=== PATIENT | female | born 1970 | race Caucasian/White ===

== ENCOUNTER 2022-10-22 13:44 | Observation (INO) ==
--- NOTE | 2022-10-22 14:37 | DR.CP ---
HPI Time Seen Time Seen by Provider: 10/22/22 14:35 PCP Primary Care Physician: Emeka HPI Comment HPI Comment: PATIENT IS 52YR OLD FEMALE IN ER WITH HEADACHE, LEFT HAND PAIN AND LIGHT HEADEDNESS AND DIZZINESS TIMES 3 WEEKS. CP AND SOB TIMES I MONTH. SYMPTOMS GETTING WORSE. DENIES FEVER, DYSURIA OR VOMITING.DENIES TRAUMA. SHE IS NAUSEATED. HISTORY DM. Complaint Chief Complaint Doctor Comments: HEADACHE, DIZZINESS TIMES 3 WEEKS AND CP AND SOB TIMES ONE MONTH. Chief Complaint:: pt comes to the ED with c/o KAUR and left hand pain. Reports lightheadedness and dizziness that started 3 weeks ago and got worse today. Pt reports CP and SOB that started x 1 month ago. Pt denies any vomiting but reports feeling nauseated. Denies any falls. COVID-19 Coronavirus risk:travel/contact w/high risk person: No Has patient experienced Coronavirus symptoms: No Reviewed Nurses Notes Review: Yes Source History Provided: Patient Mode of Arrival Mode of Arrival: Ambulatory Timing Onset of Chief Complaint: 10/08/22 PMH PMH Past Medical History: Yes Past Medical History: Diabetes Past Medical History Comment: lupus Past Surgical History: Yes Surgical History: Hysterectomy Past Surgical History Comment: hernia Family History History of Family Medical Conditions: No Family Medical History: Cancer Social History Alcohol Use: None Do you use any recreational Drugs:: No Lives With: Alone Lives Where: Home Infectious screening In the last 2 months have you had wt loss of >10#?: NO Have you had fever, night sweats or hemotysis?: No Have you traveled outside the country in the last 6 months?: No Isolation: Standard ROS Review of Systems Constitutional: No Symptoms Reported Eyes: No Symptoms Reported ENTM: No Symptoms Reported and Nose Congestion; negative Nose Discharge Respiratoy: Short of Breath; negative Moist Cough or Wheezing Cardiovascular: Chest Pain; negative Edema or Palpitations Gastrointestinal/Abdominal: Nausea; negative Abdominal Pain, Diarrhea or Vomiting Genitourinary: No Symptoms Reported; negative Dysuria Neurological: Headache and Dizziness Musculoskeletal: No Symptoms Reported Integumentary: No Symptoms Reported; negative Rash or Juandice Hematologic/Lymphatic: No Symptoms Reported; negative Easy Bruising Endocrine: No Symptoms Reported; negative Increased Thirst or Increased Urine Psychiatric: No Symptoms Reported All Other Systems: Reviewed and Negative PE Vitals Vitals: Temperature 98.2 F Pulse Rate [Standing] 91 Pulse Rate [Sitting] 90 Pulse Rate [Lying] 78 Pulse Rate 86 Respiratory Rate 18 Blood Pressure [Standing] 96/51 Blood Pressure [Sitting] 128/74 Blood Pressure [Lying] 135/70 Blood Pressure 79/51 O2 Sat by Pulse Oximetry 99 General Limitations: No Limitations General Appearance: Alert Head Head Exam: Normal Inspection and Atraumatic Eyes Eye exam: Normal Appearance, PERRL and Conjunctival Injection; negative Scleral Icterus ENT ENT Exam: Normal Exam, Normal Oropharynx, Normal External Ear Exam and TM's Normal Bilaterally Chest Chest Inspection: Normal Inspection and Symmetric Chest Wall Rise; negative Tenderness Respiratory Respiratory Exam: Normal Lung Sounds Bilat; negative Accessory Muscle Use, Chest Wall Tenderness or Respiratory Distress Respiratory Exam: Bilateral: Rhonchi Cardiovascular Cardiovascular Exam: Regular Rate, Normal Rhythm and Normal Heart Sounds; negative Systolic Murmur or Diastolic Murmur Pulse: Normal Abdominal Exam Abdominal Exam: Normal Inspection, Normal Bowel Sounds and Soft; negative Tenderness Extremities Extremities Exam: Normal Inspection and Normal Capillary Refill Back Back Exam: Normal Inspection; negative (R) CVA Tenderness or (L) CVA Tenderness Neurologic Neurological Exam: Alert and Oriented X3; negative Motor Sensory Deficit Psychiatric Psychiatric Exam: Normal Affect and Normal Mood Skin Skin Exam: Intact MDM Differential Diagnosis Differential Diagnosis: Angina, CHF, Myocardial Infarction, Pericarditis, Pneumonia and Pneumothorax COURSE Treatment Treatment: SEE ORDERS DONE WHILE PATIENT WAS IN ER. LABS, EKG AND LAB REPORTS DISCUSSED WITH PATIENT. SHE WILL BE ADMITTED TO [facility] FOR FURTHER CARE. Consultation Consultation Comments: DISCUSSED PATIENT WITH DR GIBSON. HE WILL ADMIT PATIENT. Education/Counseling Education/Counseling: Patient Educated On: Diagnosis ROR Labs Reviewed Laboratory Results Reviewed?: Yes Result Diagrams: 10/24/22 05:47 10/24/22 05:47 Laboratory: WBC 8.7 X10^3/uL (3.6-10.0) 10/22/22 15:02 RBC 4.71 X10^6/uL (3.5-5.4) 10/22/22 15:02 Hgb 12.9 g/dL (12.0-16.0) 10/22/22 15:02 Hct 37.4 % (36.0-47.0) 10/22/22 15:02 MCV 79.4 fL (80.0-100.0) L 10/22/22 15:02 MCH 27.5 pg (27.0-34.0) 10/22/22 15:02 MCHC 34.6 g/dL (33.0-35.0) 10/22/22 15:02 RDW 12.2 % (11.6-16.5) 10/22/22 15:02 Plt Count 241 X10^3/uL (150.0-450.0) 10/22/22 15:02 MPV 8.1 fL (7.4-11.0) 10/22/22 15:02 Neut % (Auto) 65.0 % (42.0-75.0) 10/22/22 15:02 Lymph % (Auto) 22.1 % (21.0-51.0) 10/22/22 15:02 [place] % (Auto) 6.5 % (0.0-13.0) 10/22/22 15:02 Eos % (Auto) 5.0 % (0.9-2.9) H 10/22/22 15:02 Baso % (Auto) 1.4 % (0.2-1.0) H 10/22/22 15:02 Neut # (Auto) 5.6 x10^3/uL (2.2-4.8) H 10/22/22 15:02 Lymph # (Auto) 1.9 X10^3/uL (1.3-2.9) 10/22/22 15:02 [place] # (Auto) 0.6 x10^3/uL (0.3-0.8) 10/22/22 15:02 Eos # (Auto) 0.4 x10^3/uL (0.0-0.2) H 10/22/22 15:02 Baso # (Auto) 0.1 X10^3/uL (0.0-0.1) 10/22/22 15:02 Absolute Nucleated RBC 0.1 /100WBC 10/22/22 15:02 Sodium 131 mmol/L (136-145) L 10/22/22 15:02 Corrected Sodium 138 mmol/L (136-145) 10/22/22 15:02 Potassium 4.4 mmol/L (3.5-5.1) 10/22/22 15:02 Chloride 97 mmol/L (98-107) L 10/22/22 15:02 Carbon Dioxide 29.5 mmol/L (21-32) 10/22/22 15:02 BUN 16 mg/dL (7-18) 10/22/22 15:02 Creatinine 1.24 mg/dL (0.55-1.02) H 10/22/22 15:02 Est GFR (MDRD) Af Amer 59 (>60) 10/22/22 15:02 Est GFR (MDRD) Non-Af 48 (>60) L 10/22/22 15:02 Glucose 397 mg/dL (65-99) H 10/22/22 15:02 POC Glucose (mg/dL) 396 mg/dL (65-99) H 10/22/22 14:24 Calcium 8.9 mg/dL (8.5-10.1) 10/22/22 15:02 Corrected Calcium TNP 10/22/22 15:02 Total Bilirubin 0.40 mg/dL (0.2-1.0) 10/22/22 15:02 AST 20 Units/L (15-37) 10/22/22 15:02 ALT 27 Units/L (12-78) 10/22/22 15:02 Alkaline Phosphatase 105 Units/L (46-116) 10/22/22 15:02 Creatine Kinase 70 Units/L (26-192) 10/22/22 15:02 Troponin I High Sens < 4.0 ng/L (4.0-60.0) L 10/22/22 15:02 Total Protein 7.1 g/dL (6.4-8.2) 10/22/22 15:02 Albumin 3.5 g/dL (3.4-5.0) 10/22/22 15:02 Globulin 3.6 g/dL (2.5-4.5) 10/22/22 15:02 Albumin/Globulin Ratio 1.0 Ratio (1.1-2.1) L 10/22/22 15:02 Specimen Type Clean catch urine 10/22/22 16:09 Urine Color Pale yellow (YELLOW) 10/22/22 16:09 Urine Appearance Clear (CLEAR) 10/22/22 16:09 Urine pH 6.0 (5.0 - 8.0) 10/22/22 16:09 Ur Specific [place] 1.020 (1.000-1.030) 10/22/22 16:09 Urine Protein 2+ (NEGATIVE) 10/22/22 16:09 Urine Glucose (UA) 4+ (NEGATIVE) 10/22/22 16:09 Urine Ketones Negative (NEGATIVE) 10/22/22 16:09 Urine Blood Negative (NEGATIVE) 10/22/22 16:09 Urine Nitrite Negative (NEGATIVE) 10/22/22 16:09 Urine Bilirubin Negative (NEGATIVE) 10/22/22 16:09 Urine Urobilinogen Normal (NORMAL) 10/22/22 16:09 Ur Leukocyte Esterase Negative (NEGATIVE) 10/22/22 16:09 Urine RBC None seen /HPF (0-3) 10/22/22 16:09 Urine WBC None seen /HPF (0-5) 10/22/22 16:09 Ur Squamous Epith Cells Rare /HPF (NEGATIVE) 10/22/22 16:09 Amorphous Sediment Trace /HPF (NEGATIVE) 10/22/22 16:09 Urine Bacteria 1+ /HPF (NEGATIVE) 10/22/22 16:09 Hyaline Casts Few /LPF (NEGATIVE) 10/22/22 16:09 Ur Culture Indicated? No/not indicated 10/22/22 16:09 XRAY XRAY Interpreted by: Radiologist (REPORTS NOTED.) and Self EKG Rate: 84 [place]: Normal Rhythm: NSR Block: None Hypertrophy: None ST: Infarct (septal infarct, age undertermined.) Opioid Opioid Risk Tool Total: 0 Total Score Risk Category: Low Risk Copyright: Romero WILKINSON predicting aberrant behaviors Discharge Plan Diagnosis Discharge Problem: Acute hypotension, Weakness generalized, Acute dehydration Headache Qualifiers: Headache type: unspecified Headache chronicity pattern: acute headache Intractability: intractable Qualified Code(s): R51.9 - Headache, unspecified Discharge Plan Patient Disposition: 09 ADMITTED INPATIENT Condition: Stable Orders to Discharge Patient Discharge Orders: Discharge (Routine); Ordered 10/24/22 Ordered By: JAY SOTELO
[2022-10-22] MEDS ORDERED: NS 1,000 ML IV 1,000 ML IV ONE (14:43)
[2022-10-22] MEDS ORDERED: NS 1,000 ML IV 1,000 ML ONE (14:52)
[2022-10-22 15:09] LABS: BASOPHILS # (AUTO) 0.1 X10^3/uL (0.0-0.1); BASOPHILS % (AUTO) 1.4 % (0.2-1.0); EOSINOPHILS # (AUTO) 0.4 x10^3/uL (0.0-0.2); HEMATOCRIT 37.4 % (36.0-47.0); HEMOGLOBIN 12.9 g/dL (12.0-16.0); LYMPHOCYTES # (AUTO) 1.9 X10^3/uL (1.3-2.9); LYMPHOCYTES % (AUTO) 22.1 % (21.0-51.0); MEAN CORPUSCULAR HEMOGLOBIN 27.5 pg (27.0-34.0); MEAN CORPUSCULAR HGB CONC 34.6 g/dL (33.0-35.0); MEAN CORPUSCULAR VOLUME 79.4 fL (80.0-100.0); MEAN PLATELET VOLUME 8.1 fL (7.4-11.0); MONOCYTES # (AUTO) 0.6 x10^3/uL (0.3-0.8); MONOCYTES % (AUTO) 6.5 % (0.0-13.0); NEUTROPHILS # (AUTO) 5.6 x10^3/uL (2.2-4.8); RED BLOOD COUNT 4.71 X10^6/uL (3.5-5.4); RED CELL DISTRIBUTION WIDTH 12.2 % (11.6-16.5); WHITE BLOOD COUNT 8.7 X10^3/uL (3.6-10.0)
[2022-10-22 15:27] LABS: ALANINE AMINOTRANSFERASE 27 Units/L (12-78); ALBUMIN 3.5 g/dL (3.4-5.0); ALKALINE PHOSPHATASE 105 Units/L (46-116); ASPARTATE AMINO TRANSFERASE 20 Units/L (15-37); BLOOD UREA NITROGEN 16 mg/dL (7-18); CALCIUM 8.9 mg/dL (8.5-10.1); CARBON DIOXIDE 29.5 mmol/L (21-32); CHLORIDE 97 mmol/L (98-107); COR NA(FOR HYPERGLY) 138 mmol/L (136-145); CREATINE KINASE 70 Units/L (26-192); CREATININE 1.24 mg/dL (0.55-1.02); SODIUM 131 mmol/L (136-145); TOTAL PROTEIN 7.1 g/dL (6.4-8.2); eGFR NON BLACK RACES 48 (>60)
--- NOTE | 2022-10-22 15:32 | RAD ---
HISTORYLIGHT HEADED, SOB. DyspneaSTUDYCHEST, 1 VIEWCOMPARISONNone available.FINDINGSThe trachea is midline. The cardiac silhouette is unremarkable.The lungs are clear without focal infiltrate or effusion.The bony thorax is unremarkable.IMPRESSIONNo acute cardiopulmonary findings .Electronically signed by: SABINE DODSON III (Oct 22, 2022 15:30:29)
--- NOTE | 2022-10-22 15:50 | EKG ---
Test Reason : HYPOTENSION Blood Pressure : */* mmHG Vent. Rate : 84 BPM Atrial Rate : 84 BPM P-R Int : 176 ms QRS Dur : 70 ms QT Int : 376 ms P-R-T Axes : 59 -15 53 degrees QTc Int : 444 ms Normal sinus rhythm Septal infarct , age undetermined Abnormal ECG No previous ECGs available Confirmed by Michael Minor ([id number]) on 10/23/2022 7:41:40 AM Referred By: Confirmed By: Michael Minor
[2022-10-22 16:18] LABS: BILIRUBIN,URINE NEGATIVE (NEGATIVE); BLOOD/HEMOGLOBIN,URINE NEGATIVE (NEGATIVE); GLUCOSE, URINE 4+ (NEGATIVE); KETONES,URINE NEGATIVE (NEGATIVE); LEUKOCYTE ESTERASE ,URINE NEGATIVE (NEGATIVE); NITRITES,URINE NEGATIVE (NEGATIVE); PROTEIN,URINE 2+ (NEGATIVE); UROBILINOGEN,URINE NORMAL (NORMAL)
[2022-10-22 16:27] LABS: APPEARANCE,URINE CLEAR (CLEAR); COLOR,URINE PALE YELLOW (YELLOW)
[2022-10-22 16:28] LABS: BACTERIA,URINE 1+ /HPF (NEGATIVE); HYALINE CASTS, URINE FEW /LPF (NEGATIVE); RBC,URINE NONE SEEN /HPF (0-3); SQUAMOUS EPITHELIAL CELL,UR RARE /HPF (NEGATIVE)
--- NOTE | 2022-10-22 17:38 | CT ---
EXAM: HEAD CT WITHOUT INTRAVENOUS CONTRASTHISTORY: Lightheadedness. Dizziness x3 weeks, with worse symptoms today.TECHNIQUE: Spiral axial CT images are obtained through the brain without the administration of intravenous contrast. Sagittal and coronal reformatted images are reconstructed.DOSIMETRY: Total DLP 841.24 mGycm; CTDI 48 mGyCOMPARISON: None available.FINDINGS:There is mild diffuse cerebral cortical atrophy. The centrum semiovale, basal ganglia, cerebellum, and brainstem are otherwise grossly unremarkable for a noncontrast CT scan.There is no acute intracranial hemorrhage, discernible acute infarction, mass lesion, midline shift, or hydrocephalus seen. No extra-axial mass or abnormal fluid collection is seen.The calvarium is intact. The partially imaged paranasal sinuses, middle ear cavities, and mastoid air cells are clear.IMPRESSION:1. No intracranial hemorrhage, discernible acute infarction, mass lesions, midline shift, mass effect or hydrocephalus seen.2. Mild diffuse cerebral cortical atrophy.3. Consider followup evaluation with MRI /MRA imaging for further assessment as clinically warranted.Electronically signed by: Leonel Brooks (Oct 22, 2022 17:37:02)
[2022-10-22] MEDS ORDERED: HumaLOG SC SCH ×2 (18:44→19:00)
[2022-10-22] MEDS: SNACK - Diabetic Appropriate PO SCH (19:45)
[2022-10-22 20:06] VITALS: BMI 26.4
[2022-10-22] MEDS: NS 1,000 ML IV 1,000 ML IV SCH (21:20)
[2022-10-22] MEDS: NovoLIN R (or HumuLIN R) SUBCUT PRN (21:22)
[2022-10-22] MEDS: LANTUS SC SCH (21:22)
--- NOTE | 2022-10-22 23:05 | EKG ---
Test Reason : CHEST PAIN Blood Pressure : */* mmHG Vent. Rate : 78 BPM Atrial Rate : 78 BPM P-R Int : 156 ms QRS Dur : 72 ms QT Int : 392 ms P-R-T Axes : 40 -15 35 degrees QTc Int : 446 ms Normal sinus rhythm Normal ECG When compared with ECG of 22-OCT-2022 14:46, (Unconfirmed) Criteria for Septal infarct are no longer present Confirmed by Michael Minor ([id number]) on 10/23/2022 7:40:58 AM Referred By: Confirmed By: Michael Minor
--- NOTE | 2022-10-23 05:15 | EKG ---
Test Reason : CHEST PAIN Blood Pressure : */* mmHG Vent. Rate : 68 BPM Atrial Rate : 68 BPM P-R Int : 164 ms QRS Dur : 70 ms QT Int : 400 ms P-R-T Axes : 69 -19 35 degrees QTc Int : 425 ms Normal sinus rhythm Normal ECG When compared with ECG of 22-OCT-2022 22:58, (Unconfirmed) No significant change was found Confirmed by Michael Minor ([id number]) on 10/23/2022 7:40:31 AM Referred By: Confirmed By: Michael Minor
[2022-10-23] MEDS: NS 1,000 ML IV 1,000 ML IV SCH ×4 (05:24→22:37)
[2022-10-23 06:04] LABS: BASOPHILS # (AUTO) 0.1 X10^3/uL (0.0-0.1); BASOPHILS % (AUTO) 1.1 % (0.2-1.0); EOSINOPHILS # (AUTO) 0.4 x10^3/uL (0.0-0.2); EOSINOPHILS % (AUTO) 6.1 % (0.9-2.9); HEMATOCRIT 35.8 % (36.0-47.0); HEMOGLOBIN 12.3 g/dL (12.0-16.0); LYMPHOCYTES # (AUTO) 2.1 X10^3/uL (1.3-2.9); LYMPHOCYTES % (AUTO) 30.8 % (21.0-51.0); MEAN CORPUSCULAR HEMOGLOBIN 27.4 pg (27.0-34.0); MEAN CORPUSCULAR HGB CONC 34.4 g/dL (33.0-35.0); MEAN CORPUSCULAR VOLUME 79.8 fL (80.0-100.0); MONOCYTES # (AUTO) 0.5 x10^3/uL (0.3-0.8); MONOCYTES % (AUTO) 6.9 % (0.0-13.0); NEUTROPHILS # (AUTO) 3.8 x10^3/uL (2.2-4.8); NEUTROPHILS % (AUTO) 55.1 % (42.0-75.0); RED BLOOD COUNT 4.49 X10^6/uL (3.5-5.4); RED CELL DISTRIBUTION WIDTH 12.6 % (11.6-16.5)
[2022-10-23] MEDS: NovoLIN R (or HumuLIN R) SUBCUT PRN ×4 (06:08→20:53)
[2022-10-23 06:09] LABS: INR 1.02 (0.8-1.3)
[2022-10-23 06:34] LABS: ALANINE AMINOTRANSFERASE 27 Units/L (12-78); ALBUMIN 2.9 g/dL (3.4-5.0); ALKALINE PHOSPHATASE 88 Units/L (46-116); ASPARTATE AMINO TRANSFERASE 19 Units/L (15-37); BLOOD UREA NITROGEN 16 mg/dL (7-18); CALCIUM 8.1 mg/dL (8.5-10.1); CARBON DIOXIDE 30.8 mmol/L (21-32); CHLORIDE 105 mmol/L (98-107); COR NA(FOR HYPERGLY) 144 mmol/L (136-145); CREATININE 0.84 mg/dL (0.55-1.02); MAGNESIUM 1.8 mg/dL (2.0-2.9); SODIUM 141 mmol/L (136-145); TOTAL PROTEIN 5.7 g/dL (6.4-8.2); eGFR NON BLACK RACES > 60 (>60)
[2022-10-23] MEDS: LANTUS SC SCH ×2 (08:30→20:52)
[2022-10-23 08:37] LABS: HEMOGLOBIN A1C 13.2 %
[2022-10-23 08:45] LABS: AMYLASE 21 Units/L (25-115); LIPASE 76 Units/L (73-393)
--- NOTE | 2022-10-23 09:51 | DR.H&P ---
H&P - History & Physical for Day of: H&P Date: 10/22/22 - Chief Complaint Chief Complaint: dizziness, arsheed, chest pain - History of Present Illness History of Present Illness: HEADACHE, LEFT HAND PAIN AND LIGHT HEADEDNESS AND DIZZINESS TIMES 3 WEEKS. CP AND SOB TIMES I MONTH. PT REPORTS DIZZINESS WORSE WITH STANDING. PT REPORTS SHE HAS DM AND HER BS HAS BEEN RUNNING HIGHER. PT REPORT SHE HAD STRESS AND AND HEART CATH IN THE PAST YEAR WITHOUT PCI REQUIRED. PT STATES HER BP HAS BEEN LOW, SHE HAS NOT TAKEN HER LISINOPRIL. - Past Medical History Past Medical History: Diabetes, GERD, Hypertension - Past Surgical History Surgical History: Hysterectomy, Ortho Surgery, Other - Family History Family Medical History: Cancer - Social History Does patient currently use any type of tobacco product: No Have you used tobacco products in the last 12 months: No Type of Tobacco Use: None Does any household member use tobacco: No Alcohol Use: None Drug Use: None Prescription drug monitoring program results: PDMP reviewed and no concerns identified - Medications Home Medications: No Known Allergies Allergy (Verified 10/22/22 19:01) CONTINUE taking the following medications insulin glargine 100 unit/mL subcutaneous solution (Lantus U-100 Insulin) 60 unit subcut BID 10/22/22 [History] insulin lispro 100 unit/mL subcutaneous solution (Humalog U-100 Insulin) See Rx Instructions .Route .COMPLEX 10/22/22 [History] - Review of Systems Constitutional: Weakness, Malaise Eyes: No Symptoms Reported ENT: No Symptoms Reported Respiratory: SOB with Excertion Cardiovascular: Chest Pain, Palpitations, Light Headedness Gastrointestinal: Nausea, Vomiting Genitourinary: No Symptoms Reported Musculoskeletal: No Symptoms Reported Skin: No Symptoms Reported Neurological: Other (DIZZINESS ) - Physical Exam Vital Signs: Temperature 97.9 F Pulse Rate [Brachial] 76 Pulse Rate [Standing] 91 Pulse Rate [Sitting] 90 Pulse Rate [Lying] 78 Pulse Rate 86 Respiratory Rate 18 Blood Pressure [Left Arm] 129/68 Blood Pressure [Standing] 96/51 Blood Pressure [Sitting] 128/74 Blood Pressure [Lying] 135/70 Blood Pressure 79/51 O2 Sat by Pulse Oximetry 94 Oriented: Normal Eyes: Normal Ear: Normal Nose: Normal Throat: Normal Respiratory: RLL Diminished, LLL Diminished Cardiovascular: Normal. negative: Murmur, Edema : Normal Auscultation: Bowel Sounds: Normal Palpation: Normal Tenderness: Normal Skin: Decreased Turgur Musculoskeletal: Normal Psychiatric: Anxiety Mood Description: Anxious Affect: Anxious Speech Pattern: Clear, Appropriate - Assessment/Plan (1) Chest pain Status: Acute Plan: ADMIT, SERIAL CE AND EKG. GENTLE IV HYDRATION, STRICT I&OS. BLOOD SUGAR CONTROL, BP CONTROL. VERIFY HOME MEDICATION. CT HEAD ON ADMISSION (2) Dizziness Status: Acute (3) Hyponatremia Status: Acute (4) Diabetes Status: Acute - Allergies Allergies/Adverse Reactions: Allergies Allergy/AdvReac Type Severity Reaction Status Date / Time No Known Allergies Allergy Verified 10/22/22 19:01
--- NOTE | 2022-10-23 15:58 | VAS ---
HISTORY: Concern for carotid artery stenosis. Chest pain.EXAM: BILATERAL DOPPLER CAROTID ULTRASOUND EXAMTechnique: Multiple overton scale and color flow Doppler images of the right and left carotid arterial system were obtained. The vertebral arterial system was evaluated as well.Findings:Nonocclusive color flow Doppler is seen throughout the right and left carotid arterial system. No hemodynamically significant carotid arterial stenosis is seen based on velocity criteria. There is [mild] atherosclerosis and plaque formation of the bilateral carotid bulbs and ICAs with associated intimal thickening but [without] evidence for high-grade stenosis (>70%) or occlusion of the carotid arteries. The right and left vertebral artery demonstrate antegrade flow.IMPRESSION:Mild bilateral carotid atherosclerosis and plaque formation of the bilateral carotid bulbs and [in both] ICAs with associated carotid intimal thickening but without evidence for high-grade stenosis or occlusion of the carotid arteries, based on Doppler velocity criteria.Appropriate, antegrade, vertebral arterial flow.Peak right ICA velocity: 113 centimeter/seconds.Peak right CCA velocity: 87 centimeter/seconds.Peak left ICA velocity: 98 centimeter/seconds.Peak left CCA velocity: 74 centimeter/seconds.Right ICA to CCA ratio: 1.8.Left ICA to CCA ratio: 1.3.Electronically signed by: SABINE DODSON III (Oct 23, 2022 15:57:25)
[2022-10-23] MEDS ORDERED: SNACK - Diabetic Appropriate PO SCH (20:00)
[2022-10-23] MEDS: SNACK - Diabetic Appropriate PO SCH (20:18)
[2022-10-24 06:41] LABS: BASOPHILS # (AUTO) 0.1 X10^3/uL (0.0-0.1); BASOPHILS % (AUTO) 1.3 % (0.2-1.0); EOSINOPHILS # (AUTO) 0.4 x10^3/uL (0.0-0.2); EOSINOPHILS % (AUTO) 6.8 % (0.9-2.9); HEMATOCRIT 35.4 % (36.0-47.0); HEMOGLOBIN 12.2 g/dL (12.0-16.0); MEAN CORPUSCULAR HEMOGLOBIN 27.4 pg (27.0-34.0); MEAN CORPUSCULAR HGB CONC 34.6 g/dL (33.0-35.0); MEAN CORPUSCULAR VOLUME 79.2 fL (80.0-100.0); MEAN PLATELET VOLUME 8.2 fL (7.4-11.0); MONOCYTES # (AUTO) 0.4 x10^3/uL (0.3-0.8); MONOCYTES % (AUTO) 6.3 % (0.0-13.0); NEUTROPHILS # (AUTO) 2.9 x10^3/uL (2.2-4.8); NEUTROPHILS % (AUTO) 50.6 % (42.0-75.0); RED BLOOD COUNT 4.47 X10^6/uL (3.5-5.4); RED CELL DISTRIBUTION WIDTH 12.5 % (11.6-16.5); WHITE BLOOD COUNT 5.7 X10^3/uL (3.6-10.0)
[2022-10-24 07:01] LABS: ALANINE AMINOTRANSFERASE 26 Units/L (12-78); ALKALINE PHOSPHATASE 87 Units/L (46-116); ASPARTATE AMINO TRANSFERASE 18 Units/L (15-37); BLOOD UREA NITROGEN 10 mg/dL (7-18); CALCIUM 8.6 mg/dL (8.5-10.1); CARBON DIOXIDE 29.3 mmol/L (21-32); CHLORIDE 106 mmol/L (98-107); COR CA(FOR HYPOALB) 9.4 mg/dL (8.5-10.1); COR NA(FOR HYPERGLY) 145 mmol/L (136-145); CREATININE 0.76 mg/dL (0.55-1.02); SODIUM 142 mmol/L (136-145); TOTAL PROTEIN 6.3 g/dL (6.4-8.2); eGFR NON BLACK RACES > 60 (>60)
[2022-10-24] MEDS: NS 1,000 ML IV 1,000 ML IV SCH ×2 (07:54→11:25)
[2022-10-24] MEDS: LANTUS SC SCH (08:31)
[2022-10-24] MEDS: NovoLIN R (or HumuLIN R) SUBCUT PRN (12:11)
[2022-10-24 12:24] VITALS: BP 171/92
== END 2022-10-24 13:30 | disposition home or self-care (01) ==
LOC: ER 13:44 → MED/SURG 13:44
PROVIDERS: ADMIT Internal Medicine; ATTEND Internal Medicine